=== PATIENT | male | born 1980 | race Caucasian/White ===

== ENCOUNTER 2022-04-23 20:16 | Observation (INO) | payer MEDICAID, SELFPAY ==
[2022-04-23 20:20] VITALS: BP 135/95; PULSE 92; RESP 13; TEMP 37.4; O2SAT 97; BMI 20.7
--- NOTE | 2022-04-23 20:24 | CTR_ITS ---
PROCEDURE INFORMATION: Exam: CT Abdomen And Pelvis With Contrast Exam date and time: 04/23/2022 10:19 PM Age: 41 years old Clinical indication: Abdominal pain; Generalized; Additional info: Abd pain TECHNIQUE: Imaging protocol: Computed tomography of the abdomen and pelvis with contrast. Radiation optimization: All CT scans at this facility use at least one of these dose optimization techniques: automated exposure control; mA and/or kV adjustment per patient size (includes targeted exams where dose is matched to clinical indication); or iterative reconstruction. Contrast material: OMNI 350; Contrast volume: 100 ml; Contrast route: INTRAVENOUS (IV); COMPARISON: No relevant prior studies available. RADIATION DOSE METRICS: Total DLP (mGy-cm): 876.51 FINDINGS: Diaphragm: Small hiatal hernia. Liver: Normal. No mass. Gallbladder and bile ducts: Normal. No calcified stones. No ductal dilation. Pancreas: Normal. No ductal dilation. Spleen: Normal. No splenomegaly. Adrenal glands: Normal. No mass. Kidneys and ureters: Cortical lesion in the left kidney is too small to characterize but is most likely a cyst. No follow-up imaging is recommended. The kidneys are otherwise unremarkable. No calculus or hydronephrosis. Stomach and bowel: Unremarkable. No obstruction. No mucosal thickening. Appendix: The appendix is dilated up to 12 mm with wall enhancement. Minimal periappendiceal fat stranding. Intraperitoneal space: Unremarkable. No free air. No significant fluid collection. Vasculature: Mild splenic hilar and retroperitoneal varices. Lymph nodes: Unremarkable. No enlarged lymph nodes. Urinary bladder: Unremarkable as visualized. Reproductive: Unremarkable as visualized. Bones/joints: Unremarkable. No acute fracture. Soft tissues: Small fat containing umbilical hernia. CT/CT abdomen pelvis w con* [id number] IMPRESSION: 1. Findings suspicious for acute appendicitis. COMMENTS: Consistent with the [employer]'s Incidental Findings Committee white paper (J Am Lavell Radiol 2018): Any incidental renal lesion less than 1 cm or classified as too small to characterize, or any incidental cystic renal lesion characterized as simple-appearing, is likely benign. No follow-up imaging is recommended for these lesions per consensus recommendations based on imaging criteria.
--- NOTE | 2022-04-23 20:25 | W.ED.ABDPA2 ---
HPI - Abdominal Pain General: Chief Complaint: Abdominal Pain Stated Complaint: ABD PAIN Time Seen by Provider: 04/23/22 20:17 Source: patient and EMS Mode of arrival: EMS Limitations: no limitations History of Present Illness: 41-year-old male who states that he has been having diffuse abdominal pain throughout the day. States started in right upper quadrant and now is pain diffusely. States pain currently is a 6 out of 10 he has had some nausea denies any vomiting. Patient denies any fever he denies any dysuria. He has no history of abdominal surgeries or abdominal issues in the past. [facility] ED PFSH: Medical History Urinary frequency Social History (Updated 04/23/22 @ 20:30 by Clem Graham MD) Substance/Drug Use: never Physical Exam Const: COMMON NORMALS: no acute distress, patient oriented x3 and healthy appearing HENMT: COMMON NORMALS: normocephalic and atraumatic HEAD & SCALP: normocephalic and atraumatic Eye: COMMON NORMALS: Equal, round and reactive pupils present and EOMs intact bilaterally PUPIL: Yes Equal, round and reactive pupils present Neck/C-Spine: COMMON NORMALS: full ROM and supple Chest: COMMONS NORMALS: normal inspection of the chest and normal palpation of entire chest wall Resp: COMMON NORMALS: normal respiratory effort, No retractions, No use of accessory muscles and clear to auscultation bilaterally AUSCULTATION: clear to auscultation bilaterally Cardio: COMMON NORMALS: regular rate, regular rhythm and No murmurs present (Cardio) RATE: regular rate RHYTHM: regular rhythm GI: COMMON NORMALS: Normal to inspection, nondistended, normoactive bowel sounds present, Soft to palpation and no masses PALPATION: Yes Soft to palpation OTHER: diffuse tenderness Extremity: COMMON NORMALS: normal to inspection and full ROM Neuro: COMMON NORMALS: patient oriented x3, moves all extremities and no focal motor deficits Psych: COMMON NORMALS: mental status grossly normal, Normal thought process present and cooperative THOUGHT PROCESS: Normal thought process present Skin: COMMON NORMALS: no rashes or lesions noted and no wounds GENERAL SKIN EXAM: no rashes or lesions noted Course Vital Signs: Vital signs: Vital Signs Temperature 99.3 F 04/23/22 20:20 Pulse Rate 92 04/23/22 20:20 Respiratory Rate 17 04/23/22 20:36 Blood Pressure 135/95 04/23/22 20:20 Pulse Oximetry 95 04/23/22 20:36 MDM - Abdominal Pain Medical Decision Making Patient presents here with appendicitis spoke to surgeon will admit at this time and do surgery likely in the morning patient started IV antibiotics. He has been stable while here. Lab Data : 04/23/22 20:30 04/23/22 20:30 Labs/Radiology: Radiology Impressions Abdomen/Pelvis CT 04/23/22 20:24 IMPRESSION: 1. Findings suspicious for acute appendicitis. COMMENTS: Consistent with the [employer]'s Incidental Findings Committee white paper (J Am Lavell Radiol 2018): Any incidental renal lesion less than 1 cm or classified as too small to characterize, or any incidental cystic renal lesion characterized as simple-appearing, is likely benign. No follow-up imaging is recommended for these lesions per consensus recommendations based on imaging criteria. ADDENDUM: 04/23/22 [id number] THIS REPORT CONTAINS FINDINGS THAT MAY BE CRITICAL TO PATIENT CARE. The findings were verbally communicated via telephone conference with CLEM GRAHAM at 11:39 PM CDT on 04/23/2022. The findings were acknowledged and understood. Laboratory Results WBC 17.5 10^3/uL (4.0-10.0) H 04/23/22 20:30 RBC 4.34 10^6/uL (4.1-5.3) 04/23/22 20:30 Hgb 13.0 g/dL (11.7-16.6) 04/23/22 20:30 Hct 37.3 % (42.0-52.0) L 04/23/22 20:30 MCV 85.9 fl (80-94) 04/23/22 20:30 MCH 30.0 pg (28.0-34.0) 04/23/22 20:30 MCHC 34.9 g/dL (30.0-36.0) 04/23/22 20:30 RDW 12.4 % (12.1-15.1) 04/23/22 20:30 Plt Count 253 10^3/cmm (130-400) 04/23/22 20:30 MPV 10.3 fL (7.4-10.4) 04/23/22 20:30 Neut % (Auto) 78.9 % 04/23/22 20:30 Lymph % (Auto) 13.0 % 04/23/22 20:30 [place] % (Auto) 7.1 % 04/23/22 20: Eos % (Auto) 0.5 % 04/23/22 20:30 Baso % (Auto) 0.2 % 04/23/22 20:30 Neut # (Auto) 13.79 10^3/uL (1.8-7.7) H 04/23/22 20:30 Lymph # (Auto) 2.3 10^3/uL (0.8-4.8) 04/23/22 20:30 [place] # (Auto) 1.2 10^3/uL (0.2-0.9) H 04/23/22 20:30 Eos # (Auto) 0.1 10^3/uL (0.0-0.8) 04/23/22 20: Baso # (Auto) 0.0 10^3/uL (0.0-0.1) 04/23/22 20: Nucleated RBC % (auto) 0 % 04/23/22 20: Nucleated RBCs # 0.0 /100WBC 04/23/22 20:30 Sodium 140 mmol/L (136-145) 04/23/22 20: Potassium 3.6 mmol/L (3.5-5.1) 04/23/22 20: Chloride 104 mmol/L (98-107) 04/23/22 20: Carbon Dioxide 21 mmol/L (22-29) L 04/23/22 20: Anion Gap 18.6 (5-19) 04/23/22 20:30 BUN 8 mg/dL (6-20) 04/23/22 20:30 Creatinine 0.8 mg/dL (0.7-1.2) 04/23/22 20: GFR Calculation 105.5 mL/min (90-130) 04/23/22 20: Glucose 80 mg/dL (65-115) 04/23/22 20: Calculated Osmolality 287 mOsm/kg (285-295) 04/23/22 20: Calcium 8.6 mg/dL (8.5-10.5) 04/23/22 20: Total Bilirubin 0.5 mg/dL (0.15-1.2) 04/23/22 20:30 AST 21 U/L (0-40) 04/23/22 20:30 ALT 15 U/L (0-41) 04/23/22 20:30 Alkaline Phosphatase 58 IU/L (40-130) 04/23/22 20:30 Total Protein 6.7 g/dL (6.6-8.7) 04/23/22 20:30 Albumin 4.4 g/dL (3.5-5.2) 04/23/22 20:30 Globulin 2.3 g/dL (1.3-4.6) 04/23/22 20: Lipase 16 U/L (13-60) 04/23/22 20:30 Urine Color Yellow (Yellow) 04/23/22 20:48 Urine Appearance Clear (CLEAR) 04/23/22 20:48 Urine pH 5 (5-7) 04/23/22 20:48 Ur Specific [place] 1.025 (1.005-1.030) 04/23/22 20:48 Urine Protein Neg (Negative) 04/23/22 20:48 Urine Glucose (UA) Norm (Normal) 04/23/22 20:48 Urine Ketones 3+ (Negative) H 04/23/22 20:48 Urine Blood 3+ (Negative) H 04/23/22 20:48 Urine Nitrate Negative (Negative) 04/23/22 20:48 Urine Bilirubin 1+ (Negative) H 04/23/22 20:48 Urine Urobilinogen 1 mg/dL (Negative) H 04/23/22 20:48 Ur Leukocyte Esterase Trace (Negative) H 04/23/22 20:48 Urine RBC 0-4 /hpf (0-2) H 04/23/22 20:48 Urine WBC 5-10 /hpf (0-5) H 04/23/22 20:48 Ur Squamous Epith Cells 0-4 /hpf (0-5) H 04/23/22 20:48 Amorphous Sediment Not Reportable 04/23/22 20:48 Urine Bacteria Trace /hpf (NONE) 04/23/22 20:48 Urine Mucus 4+ /hpf 04/23/22 20:48 EKG Data EKG 1: I personally reviewed and interpreted this EKG as follows: EKG interpretation date: 04/23/22 EKG interpretation time: 20:31 Interpretation: nsr hr [address] or t wave abnormalities qrs 105 qtc 412 Discharge Plan Discharge Patient Disposition: Admitted As Inpatient Clinical Impression: Acute appendicitis Qualifiers: Acute appendicitis type: unspecified acute appendicitis type Qualified Code(s): K35.80 - Unspecified acute appendicitis Condition: Stable Coding Level of Care Code ED Technical Advisor for Chg Fwd Exam Comprehensive
[2022-04-23 20:36] VITALS: RESP 17; O2SAT 95
[2022-04-23] MEDS: ondansetron 2 mg/ML SDV 2 mL 4 MG IVP (20:36)
[2022-04-23] MEDS: morphine 4 mg/mL SDV 1 mL IVP (20:36)
[2022-04-23 20:39] LABS: Basophils % 0.2 %; Eosinophils # 0.1 10^3/uL (0.0-0.8); Eosinophils % 0.5 %; Hematocrit 37.3 % (42.0-52.0); Lymphocytes # 2.3 10^3/uL (0.8-4.8); Mean Corpuscular HGB Conc 34.9 g/dL (30.0-36.0); Mean Corpuscular Volume 85.9 fl (80-94); Mean Platelet Volume 10.3 fL (7.4-10.4); Monocytes # 1.2 10^3/uL (0.2-0.9); Monocytes % 7.1 %; Neutrophils # 13.79 10^3/uL (1.8-7.7); Neutrophils % 78.9 %; Nucleated Red Blood Cells % 0 %; Platelet Count 253 10^3/cmm (130-400); Red Blood Count 4.34 10^6/uL (4.1-5.3); Red Cell Distribution Width 12.4 % (12.1-15.1); White Blood Count 17.5 10^3/uL (4.0-10.0)
[2022-04-23 21:00] LABS: Alanine Aminotransferase 15 U/L (0-41); Albumin Level 4.4 g/dL (3.5-5.2); Alkaline Phosphatase 58 IU/L (40-130); Blood Urea Nitrogen 8 mg/dL (6-20); Calcium 8.6 mg/dL (8.5-10.5); Carbon Dioxide 21 mmol/L (22-29); Chloride 104 mmol/L (98-107); Globulin 2.3 g/dL (1.3-4.6); Glomerular Filtration Rate 105.5 mL/min (90-130); Glucose 80 mg/dL (65-115); Lipase 16 U/L (13-60); Osmolality Calculated 287 mOsm/kg (285-295); Sodium 140 mmol/L (136-145); Total Bilirubin 0.5 mg/dL (0.15-1.2); Total Protein 6.7 g/dL (6.6-8.7)
[2022-04-23 21:02] LABS: Anion Gap 18.6 (5-19); Aspartate Amino Transferase 21 U/L (0-40); Potassium 3.6 mmol/L (3.5-5.1)
[2022-04-23 21:19] LABS: Add Urine Culture? No; Add Urine Microscopic? YES; Bacteria Urine TRACE /hpf; Bilirubin Urine 1+ (Negative); Blood Urine 3+ (Negative); Glucose Urine UA Norm (Normal); Ketones Urine 3+ (Negative); Leukocyte Esterase Urine Trace (Negative); Mucus Urine 4+ /hpf; Nitrate Urine Negative (Negative); Protein Urine Neg (Negative); RBC Urine 0-4 /hpf (0-2); Specific Gravity, Urine 1.025 (1.005-1.030); Squamous Epithelial Cell Urine 0-4 /hpf (0-5); Urine Appearance Clear (CLEAR); Urine Color Yellow (Yellow); Urobilinogen Urine 1 mg/dL (Negative); pH Urine 5 (5-7)
[2022-04-23] MEDS: iohexol 350 mg/mL 100 mL Btl IV (22:18)
[2022-04-23] MEDS: piperacillin-tazobactam 3.375 GM in sodium chloride 0.9% (plus) 50 ML IV (23:57)
[2022-04-24] VITALS (19 sets, daily range): BP systolic 100–136; BP diastolic 63–87; PULSE 51–92; RESP 12–23; TEMP 36.3–37.2; O2SAT 96–100; BMI 20.7
[2022-04-24] MEDS: lanolin oint 7 gm 1 APPLIC TOPICAL (01:47)
[2022-04-24] MEDS: sodium chloride 0.9% 1,000 ML 100 ML IV (01:47)
[2022-04-24] MEDS: morphine 4 mg/mL SDV 1 mL IVP ×2 (02:41→08:54)
--- NOTE | 2022-04-24 08:34 | P.HP_ITS ---
Providers/Chief Complaint Admitting Physician: Lev Ray DO Primary Care Provider: Syd Marcano DO Chief Complaint: ABD PAIN History of Present Illness Lew Grey is a 41 year old male who presented to the hospital with 1 day history of bilateral lower abdominal pain. He reports that his pain began on the right upper quadrant and has since moved to his lower abdomen. He reports lack of appetite. His pain is sharp and constant. Pain does not radiate. Palpation makes pain worse. Nothing makes pain better. Does report nausea but denies emesis. Denies fever or chills. Review of Systems General: Reports: 10 or more systems reviewed and unremarkable except in HPI and below Medications/Allergies Home Medications Medication Instructions Recorded Confirmed Last Taken Type albuterol 2 puff INHALATION Q4-5H PRN 04/24/22 04/24/22 Unknown History Allergies Allergy/AdvReac Type Severity Reaction Status Date / Time No Known Allergies Allergy Unverified 02/07/22 12:36 PFSH Acute PFSH: Medical History Urinary frequency Social History Substance/Drug Use: never Vitals/I&O/Wt Last Vital Signs Temp 97.4 F L 04/24/22 08:00 Pulse 51 L 04/24/22 08:00 Resp 13 04/24/22 08:00 BP 117/73 04/24/22 08:00 Pulse Ox 98 04/24/22 08:00 04/23/22 04/24/22 04/24/22 22:59 06:59 14:59 Intake Total 50 / 50 Output Total 300 / 300 Balance -250 / -250 Weight last 48 hrs Weight 140 lb Weight 140 lb Physical Exam Narrative: General : Patient is well developed , no acute distress, oriented x3 Head : Normal cephalic, a-traumatic. Ears : Pinnae and external canal are normal. Hearing is normal. Eyes : PERRLA, Sclera and injection are normal. No conjunctival discharge. Nose : Mucous membranes are without erythema. Throat : buccal mucosa is normal, gums are without significant recession or hy pertrophy. Lungs : Equal chest rise bilaterally, no use of accessory muscles, trachea is midline. Cor : Rate and rhythm are normal. Abdomen : Soft, ND, mild right lower quadrant tenderness, no g/r/m Extremities : No edema, no cyanosis or clubbing, dorsalis pedis pulses are present bilaterally, non-tender to palpation of calves. Upper extremities are normal bilaterally. Back : non-tender to palpation, no CVA tenderness. Neuro : CN II - XII intact, Upper and lower extremities have equal and full strength Data : 04/23/22 20:30 04/23/22 20:30 A&P Assessment and plan (1) Acute appendicitis: Status: Acute Qualifiers: Acute appendicitis type: unspecified acute appendicitis type Qualified Code(s): K35.80 - Unspecified acute appendicitis Plan Laparoscopic Appendectomy The risks and benefits of the procedure, including but not limited to, bleeding, infection, scar, numbness, pain, damage to surrounding structures, conversion to an open procedure, were explained to the patient. He is understanding of the risks and wishes to proceed. Attestations Medical Necessity Statement*: Patient requires appendectomy and at least 1 more night of IV antibiotics Coding Level of Care Code Acute Architecture Faculty Member for [facility] Diagnoses Acute appendicitis K35.80 Acute appendicitis type: unspecified acute appendicitis type
[2022-04-24] MEDS: piperacillin-tazobactam 3.375 GM in sodium chloride 0.9% (plus) 50 ML IV (08:53)
--- NOTE | 2022-04-24 10:33 | PC.CHAP ---
Pastoral Care Encounter/Spiritual Assessment Type of Contact [] Declined cogeneration technician visit [] Patient/Family/Request visit [] Outpatient visit [] Follow-up visit [] Physician referral [] Code/Alert [x] Routine visit [] Staff referral [] Actively dying [] Patient sleeping [] Family support [] [] Out of room [] Palliative care [] [x] Receiving care in room [] Pre-surgical visit [] Trauma [] Long length of stay [] ICU visit [] Other: Relational/Emotional Strength [x] Patient feels connected with others/family/visitors/staff [] Distress [] Loneliness/isolation [] Abandonment Spirituality of Patient [x] Person of Candida [] Attends Voodoo of their Candida [x] Believes in Prayer [] Reads Bible or Islam materials [] There are Spiritual issues to be addressed Occupational Psychologist Interventions [x] Prayer [x] Active listening [x] Non-anxious presence [x] Spiritual/emotional support [] Crisis/trauma care [x] Spiritual counseling [] Bereavement support [] Provided bereavement packet [] Provided Bible/devotional materials [] Provided toy/stuffed animal, coloring book to patient or family member [] Provided Communion [] Anointing/Riesel [] Salvation [x] Completed spiritual assessment [] Other: Impact on Illness or Injury [] Angry [] Fearful [x] Anxious [] Often cries [] Exhaustion [] Unable to work [] Unable to attend christianity [] Unable to walk/stand [] Unable to read [] Unable to drive [] Unable to eat/drink [] Unable to sleep [] Unable to be with family [] Patient intubated [] Other: Summary feeling better has some tests doesn't know what will need to be done but will be going home has a good attitude Time spent with patient 10 mins
--- NOTE | 2022-04-24 10:46 | P.ANESASSM_ITS ---
Pre-Anesthetic Assessment Height/Weight: Height 1.75 m Weight 63.503 kg Temp Pulse Resp BP Pulse Ox 97.4 F L 82 17 117/73 97 04/24/22 08:00 04/24/22 08:47 04/24/22 08:54 04/24/22 08:00 04/24/22 08:47 Operation Date: 04/24/22 14:30 Proposed Procedures p Laparoscopic Appendectomy(Not Applicable) - Lev Ray DO Operation Date: 04/25/22 10:50 Proposed Procedures p laparoscopic possible open appendectomy(Not Applicable) - Lev Ray DO Familial anesthetic complications: None Was Beta Soumya taken within 24 hours: N/A Was Clonidine taken within 24 hours: N/A Last intake: Intake Last Liquid Date 04/23/22 Last Liquid Time 23:59 Last Solid Date 04/23/22 Last Solid Time 12:00 Social Tobacco and No alcohol Exam alert, oriented x 3, clear to auscultation bilaterally and regular rate & rhythm Airway Submandibular: within normal limits Cervical ROM: within normal limits Mallampati: Class I Comments: Comments: missing most teeth except bottom front teeth History/ROS No significant complaints Pulmonary None reported CV/HEM None reported None reported Hepatic None reported GI acute appendicitis Metabolic None reported Musc/skel None reported Neuropsych None reported Anesthetic Plan ASA status: 2 Anesthesia: Anesthesia Evaluation and General Other: We discussed risk and benefits of general anesthesia including PONV, sore throat (sometimes severe), corneal abrasion, positioning and peripheral nerve injuries, life threatening allergic reaction, post operative ICU admission requiring prolonged intubation, stroke, heart attack, , and rare incidences of recall. Patient consents to proceed with general anesthesia. Risk of > 500 ml blood loss (7ml/kg in children): No Medications/Allergies Home Medications Medication Instructions Recorded Confirmed Last Taken Type albuterol 2 puff INHALATION Q4-5H PRN 04/24/22 04/24/22 Unknown History Allergies Allergy/AdvReac Type Severity Reaction Status Date / Time No Known Allergies Allergy Unverified 02/07/22 12:36 Current Medications Generic Name Dose Route Start Last Admin Trade Name Freq PRN Reason Stop Dose Admin Sodium Chloride 1,000 mls @ 100 mls/hr 04/24/22 01:26 04/24/22 01:47 Sodium Chloride 0.9% IV 100 mls/hr .Q10H HRASHIL Administration Piperacillin Sod/Tazobactam 50 mls @ 12.5 mls/hr 04/24/22 08:30 04/24/22 08:53 Sod 3.375 gm/ Sodium Chloride IV 12.5 mls/hr Q8H HARSHIL Administration Protocol Lanolin 1 applic 04/24/22 01:27 04/24/22 01:47 Lanolin Oint 7 Gm TOPICAL 1 applic PRN PRN Administration DRYNESS Morphine Sulfate 4 mg 04/24/22 01:26 04/24/22 08:54 Morphine 4 Mg/Ml Sdv 1 Ml IVP 4 mg Q4H PRN Administration SEVERE PAIN PFSH Anesthesia Medical History Urinary frequency Social History Substance/Drug Use: never Data Anesthesia : 04/23/22 20:30 04/23/22 20:30 Short CBC 04/23/22 Range/Units 20:30 WBC 17.5 H (4.0-10.0) 10^3/uL Hgb 13.0 (11.7-16.6) g/dL Hct 37.3 L (42.0-52.0) % MCV 85.9 (80-94) fl Plt Count 253 (130-400) 10^3/cmm Neut % (Auto) 78.9 % Neut # (Auto) 13.79 H (1.8-7.7) 10^3/uL BMP 04/23/22 20:30 Sodium 140 Potassium 3.6 Chloride 104 Carbon Dioxide 21 L BUN 8 Creatinine 0.8 Glucose 80 Calcium 8.6 Liver Function 04/23/22 Range/Units 20:30 Total Bilirubin 0.5 (0.15-1.2) mg/dL AST 21 (0-40) U/L ALT 15 (0-41) U/L Alkaline Phosphatase 58 (40-130) IU/L Albumin 4.4 (3.5-5.2) g/dL Urine 04/23/22 Range/Units 20:48 Urine Color Yellow (Yellow) Urine Appearance Clear (CLEAR) Urine pH 5 (5-7) Ur Specific [place] 1.025 (1.005-1.030) Urine Protein Neg (Negative) Urine Glucose (UA) Norm (Normal) Urine Ketones 3+ H (Negative) Urine Nitrate Negative (Negative) Urine Bilirubin 1+ H (Negative) Ur Leukocyte Esterase Trace H (Negative) Urine RBC 0-4 H (0-2) /hpf Urine WBC 5-10 H (0-5) /hpf Cardiac Studies: No Data to Display
--- NOTE | 2022-04-24 10:56 | PC.NURSE ---
surgery Pt taken down in wheelchair for surgery.
--- NOTE | 2022-04-24 13:26 | SUR.PHASEI ---
1318 PT TO PACU 5 PT AWAKES TO VOICE, PT VERBALLY DENIES PAIN AND NAUSEA, GOOD RESP NOTED ABDOMEN SOFT FLAT WITH 3 SITES WITH DERMABOND , BILAT SCDS ON , IV TP LT FA #20 IV WITH NS 750ML UP AT KVO RATE ID BRACELET TO LT WRIST PT ID'D WITH 2 IDENTIFIERS.
--- NOTE | 2022-04-24 13:32 | P.OP_ITS ---
Operative Report Date of procedure: April 24, 2022 Pre-op diagnosis: Acute appendicitis Post-op diagnosis: same Procedure done: Laparoscopic appendectomy Specimens removed/disposition: Appendix Surgeon: Dr. Lev Ray DO Estimated blood loss: 2 Complications: None apparent Brief History: This is a 41-year-old gentleman who came in with abdominal pain. He was diagnosed with acute appendicitis. Laparoscopic appendectomy was indicated. The risks and benefits were explained and documented Procedure: Patient was wheeled into the operative room and placed on the OR table in a supine position. Abdomen was inspected prepped and draped in usual sterile fashion. Time-out was performed and all present were in agreement. A 15 blade scalp was used to make a stab incision in the left upper quadrant and intra- abdominal insufflation was achieved using a Veress needle. After localizing the tissue incisions were made and a 12 millimeter trocar was placed into the umbilicus as well as a 5mm in the right lower quadrant and a 5 mm in the left lower quadrant . The appendix was identified and was mildly inflamed. I used the Voyant to ligate the mesoappendix at the base. I then used 2 PDS endo-loops to snare the base of the appendix. I then used the Voyant to ligate the appendix distally. The appendix was removed from the abdomen using an Endo- Catch bag through the umbilical incision. I examined the abdomen and no further pathology was identified. Hemostasis was noted. I then closed the umb ilical site with a Jonathan-Jodi and 0 Vicryl suture in a figure of 8 fashion. All ports removed. Skin was washed and dried. Incisions were closed with 4 O Vicryl in a subcuticular interrupted fashion. Skin glue was applied. Patient tolerated the procedure well.
[2022-04-24] MEDS: fentaNYL 50 mcg/mL INJ 2mL IVP (13:33)
--- NOTE | 2022-04-24 13:39 | SUR.PHASEI ---
1330 PT ON RA TRIAL, PT REMAINS AWAKE ALERT, PT NOW C/O OF SHARP PAIN TO LOWER BILATERAL ABDOMEN AREA, VSS MONITOR SR NO ECTPOPY, SEE PAIN MED GIVEN.
--- NOTE | 2022-04-24 14:47 | PM.DCS ---
Discharge Providers Date of Admission: 04/24/22 00:30 Date of Discharge: April 24, 2022 Attending Provider at Admission: Lev Ray DO Attending Provider at Discharge: Lev Ray DO Primary Care Provider: Syd Marcano DO Diagnoses at Discharge Discharge Diagnosis (1) Acute appendicitis: Status: Acute Qualifiers: Acute appendicitis type: unspecified acute appendicitis type Qualified Code(s): K35.80 - Unspecified acute appendicitis Reason for Visit Reason for Visit: ABD PAIN Brief History: 41-year-old male came in with acute appendicitis Hospital Course Hospital Course 41-year-old male was diagnosed with acute appendicitis. He underwent laparoscopic appendectomy. He was discharged home in good condition. Physical Exam Narrative: General : Patient is well developed , no acute distress, oriented x3 Head : Normal cephalic, a-traumatic. Ears : Pinnae and external canal are normal. Hearing is normal. Eyes : PERRLA, Sclera and injection are normal. No conjunctival discharge. Nose : Mucous membranes are without erythema. Throat : buccal mucosa is normal, gums are without significant recession or hypertrophy. Lungs : Equal chest rise bilaterally, no use of accessory muscles, trachea is midline. Cor : Rate and rhythm are normal. Abdomen : Soft, ND, appropriately tender to palpation, no g/r/m Extremities : No edema, no cyanosis or clubbing, dorsalis pedis pulses are present bilaterally, non-tender to palpation of calves. Upper extremities are normal bilaterally. Back : non-tender to palpation, no CVA tenderness. Neuro : CN II - XII intact, Upper and lower extremities have equal and full strength Discharge Data Studies Completed and Pending Completed Studies During Hospitalization Category Date Time Status CT abdomen pelvis w con* [id number] Urgent Cat Scan 04/23/22 20:24 Completed Pending at discharge Category Date Time Status Pathology: Surgical [PTH] Routine Pth 04/24/22 13:22 Received Radiology Impressions Abdomen/Pelvis CT 04/23/22 20:24 IMPRESSION: 1. Findings suspicious for acute appendicitis. COMMENTS: Consistent with the [employer] [place] [employer]'s Incidental Findings Committee white paper (J Am Lavell [employer]iol 2018): Any incidental renal lesion less than 1 cm or classified as too small to characterize, or any incidental cystic renal lesion characterized as simple-appearing, is likely benign. No follow-up imaging is recommended for these lesions per consensus recommendations based on imaging criteria. ADDENDUM: 04/23/22 [id number] THIS REPORT CONTAINS FINDINGS THAT MAY BE CRITICAL TO PATIENT CARE. The findings were verbally communicated via telephone conference with CLEM GRAHAM at 11:39 PM CDT on 04/23/2022. The findings were acknowledged and understood. Laboratory Results WBC 17.5 10^3/uL (4.0-10.0) H 04/23/22 20: RBC 4.34 10^6/uL (4.1-5.3) 04/23/22 20: Hgb 13.0 g/dL (11.7-16.6) 04/23/22 20: Hct 37.3 % (42.0-52.0) L 04/23/22: MCV 85.9 fl (80-94) 04/23/22: MCH 30.0 pg (28.0-34.0) 04/23/22: MCHC 34.9 g/dL (30.0-36.0) 04/23/22: RDW 12.4 % (12.1-15.1) 04/23/22: Plt Count 253 10^3/cmm (130-400) 04/23/22 20: MPV 10.3 fL (7.4-10.4) 04/23/22: Neut % (Auto) 78.9 % 04/23/22 20: Lymph % (Auto) 13.0 % 04/23/22: [place] % (Auto) 7.1 % 04/23/22: Eos % (Auto) 0.5 % 04/23/22: Baso % (Auto) 0.2 % 04/23/22: Neut # (Auto) 13.79 10^3/uL (1.8-7.7) H 04/23/22: Lymph # (Auto) 2.3 10^3/uL (0.8-4.8) 04/23/22: [place] # (Auto) 1.2 10^3/uL (0.2-0.9) H 04/23/22 20: Eos # (Auto) 0.1 10^3/uL (0.0-0.8) 04/23/22 20:30 Baso # (Auto) 0.0 10^3/uL (0.0-0.1) 04/23/22 20: Nucleated RBC % (auto) 0 % 04/23/22 20: Nucleated RBCs # 0.0 /100WBC 04/23/22 20:30 Sodium 140 mmol/L (136-145) 04/23/22 20:30 Potassium 3.6 mmol/L (3.5-5.1) 04/23/22 20: Chloride 104 mmol/L (98-107) 04/23/22 20:30 Carbon Dioxide 21 mmol/L (22-29) L 04/23/22 20:30 Anion Gap 18.6 (5-19) 04/23/22 20: BUN 8 mg/dL (6-20) 04/23/22 20: Creatinine 0.8 mg/dL (0.7-1.2) 04/23/22 20:30 GFR Calculation 105.5 mL/min (90-130) 04/23/22 20: Glucose 80 mg/dL (65-115) 04/23/22 20:30 Calculated Osmolality 287 mOsm/kg (285-295) 04/23/22 20: Calcium 8.6 mg/dL (8.5-10.5) 04/23/22 20: Total Bilirubin 0.5 mg/dL (0.15-1.2) 04/23/22 20:30 AST 21 U/L (0-40) 04/23/22 20: ALT 15 U/L (0-41) 04/23/22 20: Alkaline Phosphatase 58 IU/L (40-130) 04/23/22 20: Total Protein 6.7 g/dL (6.6-8.7) 04/23/22 20: Albumin 4.4 g/dL (3.5-5.2) 04/23/22 20: Globulin 2.3 g/dL (1.3-4.6) 04/23/22 20: Lipase 16 U/L (13-60) 04/23/22 20:30 Urine Color Yellow (Yellow) 04/23/22 20:48 Urine Appearance Clear (CLEAR) 04/23/22 20:48 Urine pH 5 (5-7) 04/23/22 20:48 Ur Specific [place] 1.025 (1.005-1.030) 04/23/22 20:48 Urine Protein Neg (Negative) 04/23/22 20:48 Urine Glucose (UA) Norm (Normal) 04/23/22 20:48 Urine Ketones 3+ (Negative) H 04/23/22 20:48 Urine Blood 3+ (Negative) H 04/23/22 20:48 Urine Nitrate Negative (Negative) 04/23/22 20:48 Urine Bilirubin 1+ (Negative) H 04/23/22 20:48 Urine Urobilinogen 1 mg/dL (Negative) H 04/23/22 20:48 Ur Leukocyte Esterase Trace (Negative) H 04/23/22 20:48 Urine RBC 0-4 /hpf (0-2) H 04/23/22 20:48 Urine WBC 5-10 /hpf (0-5) H 04/23/22 20:48 Ur Squamous Epith Cells 0-4 /hpf (0-5) H 04/23/22 20:48 Amorphous Sediment Not Reportable 04/23/22 20:48 Urine Bacteria Trace /hpf (NONE) 04/23/22 20:48 Urine Mucus 4+ /hpf 04/23/22 20:48 Vitals Last Vital Signs Temp 97.6 F 04/24/22 13:45 Pulse 74 04/24/22 13:45 Resp 19 H 04/24/22 13:45 BP 113/67 04/24/22 13:45 Pulse Ox 100 04/24/22 13:45 Discharge Plan Discharge Patient Disposition: Home Condition: Stable Prescriptions: New hydrocodone-acetaminophen 5-325 mg tablet 1 tab PO Q8H PRN (Reason: pain) Qty: 20 0RF Continued albuterol 2 puff inhalation Q4-5H PRN (Reason: Shortness Of Breath) 0RF Discharge Orders: Discharge Order (Routine); Ordered 04/24/22 Ordered By: Lev Ray Referrals: Syd Marcano DO [Primary Care Provider] - 4-7 days Lev Ray DO [Physician] - 2 weeks Discharge Diet: Advance as tolerated Discharge Activity: Resume usual activity Patient Instructions: Appendicitis (GEN), Opioid Safety, Post Anesthesia Care Activity Restrictions/Additional Instructions: Do not soak incisions underwater for 2 weeks. Shower daily. No lifting restrictions. Discharge Attestations Time Spent in Discharge Care*: less than 30 min Quality Metrics Clinical Quality Measures [ No reported AMI, CVA or VTE this stay] Coding Level of Care Code Acute Chg FW DC note Diagnoses Acute appendicitis K35.80 Acute appendicitis type: unspecified acute appendicitis type
--- NOTE | 2022-04-24 15:08 | ANE.PACU2 ---
Inpatient post-anesthesia follow up: Airway intact: Yes Vital signs: Temperature 97.6 F Pulse Rate 74 Respiratory Rate 19 Blood Pressure 113/67 Pulse Oximetry 100 Oxygen Delivery Me thod Room Air Oxygen Flow Rate 8 Fraction of Inspir ed Oxygen Hydration adequate: Yes Nausea and vomiting: No Pain level: 1 Mental status: Baseline
== END 2022-04-24 16:15 | disposition home or self-care (01) ==
LOC: ER 23:48 → MEDSURG 04-24 00:30
PROVIDERS: Admitting Provider Surgery; Emergency Provider Emergency Medicine; PCP Family Medicine; Visit Provider Surgery
PROC: 0DTJ4ZZ Resection of Appendix, Percutaneous Endoscopic Approach (ICD-10-PCS; CPT 44970; principal; 2022-04-24 14:30)
DX: K35.80 Unspecified acute appendicitis (principal)
CPT/HCPCS: 44970; 74177; 80053; 81001; 83690; 85025; 88304; 96365; 96375; 99285; G0378; J0330; J1100; J1170; J2270; J2405; J2543; J2704; J2710; J3010; J3490; J7030; Q9967